=== PATIENT | female | born 2000 | race African-American/Black ===

== ENCOUNTER 2022-02-27 20:43 | Emergency (ER) | payer SELFPAY ==
[~2022-02-27] VITALS: Ht 165 cm; Wt 117.1 kg
[2022-02-27 20:58] VITALS: BP 123/83
--- NOTE | 2022-02-27 21:22 | ED General ---
General Chief Complaint: General Problems/Pain Stated Complaint: SHAKING - RAPID HEARTBEAT Nursing Triage Note: Patient presents to the ER tonight with complaints of "feeling different" she advised she feels like her heart is racing. She states that she has periodontal disease undiagnosed- just knows that she has. Source of Information: Patient Exam Limitations: No Limitations (ANOOP LIN) History of Present Illness Date Seen by Provider: Feb 27, 2022 Time Seen by Provider: 21:16 Initial Comments 22 F presents to ED with complaints of shaking and rapid heart beat. Pt also has complaints of gingival edema that has caused her some pain. Pt states that intermittently for the past several weeks she has felt her heart race/flutter and becomes cold and diaphoretic. Denies any syncopal episodes, lightheadedness, SOB, or n/v. Pt currently has some mild chest discomfort that is rated 3/10 and described as an ache. Notes she has multiple stressors in her life at the moment for which she self medicates daily with marijuana. Pt denies any other elicit drug use. Denies any caffeine intake. Timing/Duration: Intermittent (for past several weeks ) Severity: Mild Associated Systoms: Chest Pain; No Cough, No Headaches, No Loss of Appetite, No Nausea/Vomiting, No Syncope (ANOOP LIN) Allergies and Home Medications Allergies Coded Allergies: No Known Drug Allergies (Unverified , 02/27/22) Patient Home Medication List Home Medication List Reviewed: Yes (ANOOP LIN) Review of Systems Review of Systems Constitutional: chills, diaphoresis EENTM: mouth pain (gingival pain ); No blurred vision, No throat swelling Respiratory: No cough, No dyspnea on exertion, No short of breath, No wheezing Cardiovascular: chest pain, palpitations; No syncope Gastrointestinal: No abdominal pain, No constipation, No diarrhea, No nausea, No vomiting Genitourinary: no symptoms reported Musculoskeletal: no symptoms reported Skin: no symptoms reported Psychiatric/Neurological: Anxiety, Other (stressed ) Hematologic/Lymphatic: No Symptoms Reported (ANOOP LIN) Past Kwarmeh-Gchjyc-Tdakdd Hx Patient Social History Tobacco Use?: No Substance use?: No Alcohol Use?: No (ANOOP LIN) Immunizations Up To Date Influenza Vaccine Up-to-Date: No; Not Current First/Initial COVID19 Vaccinat: pfizer- 2021 (SAUCE,ANOOP) Past Medical History Surgery/Hospitalization HX: none (SAUCE,ANOOP) Physical Exam Vital Signs Vital Signs - First Documented 02/27/22 20:58 Temp 36.8 Pulse 106 Resp 20 B/P (MAP) 123/83 (96) Pulse Ox 99 O2 Delivery Room Air (CHELE BREWSTER MD) Vital Signs Capillary Refill : Less Than 3 Seconds (SAUCE,ANOOP) Height, Weight, BMI Height: '" Weight: lbs. oz. kg; 43.00 BMI Method: General Appearance: No Apparent Distress, WD/WN, Anxious Eyes: Bilateral Eye PERRL, Bilateral Eye EOMI HEENT: Normal ENT Inspection, Moist Mucous Membranes Neck: Normal Inspection, Non Tender, Supple Respiratory: Chest Non Tender, Lungs Clear, Normal Breath Sounds, No Accessory Muscle Use, No Respiratory Distress Cardiovascular: No Murmur, Normal Peripheral Pulses, Tachycardia Gastrointestinal: Normal Bowel Sounds, No Organomegaly, No Pulsatile Mass, Non Tender, Soft Extremity: Normal Capillary Refill, Non Tender, No Calf Tenderness Neurologic/Psychiatric: Alert, Oriented x3, Normal Mood/Affect Skin: Normal Color, Warm/Dry Lymphatic: No Adenopathy (SAPOPEYE HARTANOOP) Progress/Results/Core Measures Suspected Sepsis SIRS Temperature: Pulse: 106 Respiratory Rate: 20 Blood Pressure 123 /83 Mean: 96 (SATANNER,ANOOP) Results/Orders My Orders Orders - CHELE BREWSTER MD Urine Bedside (02/27/22 21:21) (CHELE BREWSTER MD) Vital Signs/I&O 02/27/22 20:58 Temp 36.8 Pulse 106 Resp 20 B/P (MAP) 123/83 (96) Pulse Ox 99 O2 Delivery Room Air (CHELE BREWSTER MD) Vital Signs/I&O Capillary Refill : Less Than 3 Seconds (POPEYE LINULTON) Blood Pressure Mean: 96 Progress Note : Time: 21:40 Progress Note Patient seen and evaluated by me, 22-year-old who presents with chief complaint of a couple of weeks feeling "shaky, heart fluttering and racing. She states when this happens she feels "cold and sweaty". She does endorse increased stress at daily. She has been self-medicating with marijuana. Denies any stimulant drugs, excessive caffeine. States she drinks lots of water. On no daily medications. Just finished her menstrual cycle. Physical exam unremarkable for any acute abnormality. No focal neurologic deficits. She is a little tachycardic with a heart rate at 97 per EKG. no abnormalities noted on EKG. Other vital signs are stable. Assessment, palpitations/anxiety/tobacco abuse Recommendations follow-up with primary care, self-care/medication apps to help with decreasing stress; return precautions provided. (CHELE BREWSTER MD) ECG Initial ECG Impression Date: Feb 27, 2022 Initial ECG Impression Time: 21:19 Initial ECG Rate: 97 Initial ECG Rhythm: S.Tach Initial ECG Intervals: Normal Initial ECG Impression: Normal Initial ECG Comparisson: No Previous ECG Available (CHELE BREWSTER MD) Counseling-Symptomatic: 3-10 Minutes Follow-up with PCP to: Discuss Further Options (CHELE BREWSTER MD) Departure Impression Primary Impression: Palpitations Additional Impression: Anxiety Disposition: 01 HOME, SELF-CARE Condition: Stable Departure-Patient Inst. Decision time for Depature: 21:38 (CHELE BREWSTER MD) Referrals: [facility] [place] (PCP/Family) Primary Care Physician Patient Instructions: Anxiety, Adult (DC), LOCAL PHYSICIAN LIST, Palpitations ED Add. Discharge Instructions: You may try and look for some apps for meditation and stress relief. The more you are "in your head" the more stress you have. Try and stop smoking - this is the biggest risk factor for health "badness" out there. Use a good Listerine/antimicrobial mouthwash daily. Follow up with your primary care doctor/ [facility] for possible further workup of a nxiety/ palpitations. Return to the ER for any new, concerning or emergent complaints. Verification and Attestation of Medical Student E/M Service A medical student performed and documented this service in my presence. I review ed and verified all information documented by the medical student and made modifications to such information, when appropriate. I personally performed the physical exam and medical decision making. Chele Brewster, Feb 27, 2022,21:42 (CHELE BREWSTER MD) Copy Copies To 1: SCOTT GIORDANO DAULTON Feb 27, 2022 21:22 CHELE BREWSTER MD Feb 27, 2022 21:42
== END 2022-02-27 21:50 | disposition home or self-care (01) ==
LOC: EDUNIT# 20:43 → ER 20:45
DX: F41.9 Anxiety disorder, unspecified (principal); Z28.311 Partially vaccinated for COVID-19
CPT/HCPCS: 84703; 93005